=== PATIENT | male | born 1985 | race Caucasian/White ===

== ENCOUNTER 2018-02-18 19:18 | Emergency (ER) | payer OTHER ==
[~2018-02-18] VITALS: Ht 180.3 cm; Wt 81.1 kg
[2018-02-18 19:21] VITALS: Ht 180.3 cm; Wt 81.1 kg
[2018-02-18] MEDS ORDERED: IBUPROFEN 800 MG TAB PO ONE (20:30)
[2018-02-18] MEDS ORDERED: NAPR-985 PO (20:36)
[2018-02-18 20:58] VITALS: BP 112/64; PULSE 60; RESP 18
--- NOTE | 2018-02-19 00:57 | ERD ---
ER Documentation Chief Complaint Chief Complaint RIGHT FOOT INJ, STING BY SEA URCHIN X2WKS AGO; POSS FB HPI 32-year-old male presents with right foot pain for two weeks since he came back from [facility]. Patient states that he was walking a lot about couple weeks prior to being seen. He states that he was in the water he does not sure but he thinks that he might of got stung by a sea urchin, rates pain moderate in severity. He states that ibuprofen was taken in the morning ROS All systems reviewed and are negative except as per history of present illness. Medications Home Meds Active Scripts Naproxen* (Naprosyn*) 500 Mg Tablet, 500 MG PO BID PRN for PAIN AND/OR INFLAMMATION, #30 TAB Prov:CHRIS CHEN PA-C 02/18/18 PMhx/Soc Hx Alcohol Use: Yes Hx Substance Use: Yes (MARIJUANA) Hx Tobacco Use: No Smoking Status: Never smoker Physical Exam Vitals Vital Signs Date Temp Pulse Resp B/P (MAP) Pulse Ox O2 O2 Flow FiO2 Time Delivery Rate 02/18/18 98.8 60 18 112/64 98 Room Air 20:58 (80) 02/18/18 97.7 71 19 119/66 100 19:21 (83) Physical Exam Const: No acute distress Head: Atraumatic Eyes: Normal Conjunctiva ENT: Normal External Ears, Nose and Mouth. Neck: Full range of motion. No meningismus. Resp: Normal breathing patterns Cardio: Regular rate Abd: Soft, non distended. Skin: No petechiae or rashes Back: No midline or flank tenderness Ext: tender to palpation on plantar surface of foot Neur: Awake and alert Psych: Normal Mood and Affect Results 24 hrs Current Medications Medications Dose Sig/Maira Start Time Status Last (Trade) Ordered Route PRN Stop Time Admin Dose Reason Admin Ibuprofen 800 mg ONCE ONCE 02/18/18 DC 02/18/18 (Motrin) PO 20:30 20:24 02/18/18 20:31 Procedures/MDM 32-year-old male presents emergency department with right foot pain, differentials include not limited to metatarsalia, sprain, x-ray did not show any evidence of acute fractures or dislocations. Ultrasound did not show any evidence of foreign body. Patient stable to be discharged home with prescription for naproxen. I have given him return precautions he understands agrees this plan Departure Diagnosis: Primary Impression: Foot pain Condition: Stable Patient Instructions: What Is Metatarsalgia?, Treating Metatarsalgia, What Is Tendinitis of the Foot?, Sprain Foot Referrals: NO PRIMARY,CARE PHYSICIAN Additional Instructions: FOLLOW UP WITH YOUR PRIMARY CARE PHYSICIAN TOMORROW.Return to this facility if you are not improving as expected. Return to this facility if you are not improving as expected. Take all medicines as directed. CHRIS CHEN PA-C Feb 19, 2018 00:57
== END 2018-02-18 20:57 | disposition home or self-care (01) ==
LOC: FTE 19:18
DX: M79.671 Pain in right foot (principal)
CPT/HCPCS: 73630; 76536; Z7502; Z7610